=== PATIENT | male | born 1980 | race African-American/Black ===

== ENCOUNTER 2022-07-10 19:32 | Emergency (ER) | payer OTHER, SELFPAY ==
[2022-07-10 19:34] VITALS: BP 143/81; PULSE 84; RESP 16; TEMP 36.2; O2SAT 100
[2022-07-10 19:57] LABS: Basophils Percent Auto 0.2 % (0.2-1.2); Eosinophils Absolute Auto 0.3 K/mm3 (0-0.3); Eosinophils Percent Auto 3.3 % (0-4.4); Hematocrit 45.9 % (42.0-52.0); Hemoglobin 14.5 g/dL (14.0-18.0); Immature Granulocyte Absolute 0.02 K/mm3 (0.00-0.031); Immature Granulocyte Percent A 0.2 % (0-0.5); Lymphocytes Absolute Auto 1.81 K/mm3 (0.9-3.2); Lymphocytes Percent Auto 22.2 % (18.3-44.2); Mean Corpuscular HGB Conc 31.6 g/dl (32-36); Mean Corpuscular Hemoglobin 24.7 pg (26-34); Mean Corpuscular Volume 78.1 fl (80-100); Mean Platelet Volume 9.3 fl (7.4-10.4); Monocytes Absolute Auto 0.7 K/mm3 (0.1-0.6); Monocytes Percent Auto 8.7 % (2.6-8.5); Neutrophils Absolute Auto 5.3 K/mm3 (1.3-6.7); Neutrophils Percent Auto 65.4 % (45.5-73.1); Platelet Count Result 249 k/mm3 (150-375); Red Blood Count 5.88 M/mm3 (4.6-6.20); Red Cell Distribution Width 17.1 % (11.5-14.5); White Blood Count 8.2 K/mm3 (4.5-10.0)
[2022-07-10 19:59] LABS: Appearance Urine Clear (Clear); Bilirubin Urine Negative (Negative); Blood Urine Negative (Negative); Color Urine Yellow (Yellow); Glucose Urine UA Negative (Negative); Ketones Urine Negative (Negative); Leukocyte Esterase Ur Negative LEU/UL (Negative); Nitrate Urine Negative (Negative); Protein Urine Negative (Negative); Specific Grav Ur 1.026 (1.001-1.035); Urobilinogen Urine 0.2 mg/dL (<2.0); pH Urine 5.5 (5.0-9.0)
[2022-07-10 20:03] LABS: Add Urine Microscopic? NO
[2022-07-10 20:10] LABS: Alanine Aminotransferase 33 U/L (6-50); Albumin Level 4.9 g/dL (3.5-5.1); Alkaline Phosphatase 71 U/L (38-126); Anion Gap 8 mmol/L (8-16); Aspartate Amino Transferase 25 U/L (17-59); Bilirubin,Total 0.7 mg/dL (0.2-1.3); Blood Urea Nitrogen 12 mg/dL (9-20); Carbon Dioxide 29 mmol/L (22-30); Chloride 103 mmol/L (98-107); Estimated CRCL calculation 92 ml/min; Estimated Glomerular Filt Rate > 60; Glucose 100 mg/dL (65-110); Lipase 87 U/L (23-300); Sodium 140 mmol/L (137-145)
--- NOTE | 2022-07-10 21:11 | ED.ABDPAIN ---
HPI - Abdominal Pain General Chief Complaint: Abdominal Pain Stated Complaint: fatigue, diarrhea Time Seen by Provider: 07/10/22 21:01 History of Present Illness HPI narrative: Patient is a 42-year-old male here after he had an episode of diarrhea this morning. Patient expresses concern because his bowel movements are usually solid and he was concerned that his bowel movement today was liquid. He denies blood in his stool. He had [id number] yesterday that he states looked suspicious , and the person that handed him his food had dirty fingers . Woke up today with nausea and fatigue. No abdominal pain, fevers, vomiting. Related Data Allergies Allergy/AdvReac Type Severity Reaction Status Date / Time acetaminophen [From NyQuil] Allergy Back Pain Verified 07/10/22 21:07 dextromethorphan Allergy Back Pain Verified 07/10/22 21:07 [From NyQuil] doxylamine [From NyQuil] Allergy Back Pain Verified 07/10/22 21:07 pseudoephedrine [From NyQuil] Allergy Back Pain Verified 07/10/22 21:07 Review of Systems Review of Systems: Gen.: Denies fevers or chills Eyes: Denies eye pain or visual change ENT: Denies congestion Respiratory: Denies shortness of breath or cough CV: Denies chest pain or palpitations GI: reports diarrhea and nausea. Denies abdominal pain emesis denies burning, urgency, frequency or hematuria Musculoskeletal: Denies back pain or muscle pain Neuro: Denies numbness, tingling, weakness or focal weakness Skin: Denies rash Except as documented, all other systems reviewed and negative Exam Narrative: APPEARANCE: Well appearing, no pain in distress, well-nourished. Head: Normocephalic and atraumatic. EYES: PERRLA/EOMI, conjunctivae clear NOSE: No nasal drainage EARS: External ear normal in appearance THROAT: Oropharynx is clear. Mucous membranes are moist. NECK: Supple. No adenopathy, no masses. RESPIRATORY: Airway patent, respirations nonlabored. Clear to auscultation bilaterally, no rales, rhonchi, wheezing. CARDIOVASCULAR: Regular rate and rhythm without murmurs, rubs, or gallops. ABDOMINAL: Normoactive bowel sounds. Soft, nontender, nondistended. No rebound tenderness or guarding. MUSCULOSKELETAL: Extremities are warm and well-perfused. Moves all extremities well. No edema. NEURO: Normal speech. No focal neurologic deficits. SKIN: Skin is warm and dry. No rashes. PSYCHIATRIC: Normal affect/mood. Course Vital Signs Vital signs: Vital Signs Temperature 97.2 F L 07/10/22 19:34 Pulse Rate 84 07/10/22 19:34 Respiratory Rate 16 07/10/22 19:34 Blood Pressure 143/81 H 07/10/22 19:34 Pulse Oximetry 100 07/10/22 19:34 Oxygen Delivery Room Air 07/10/22 19:34 Temperature 97.2 F L 07/10/22 19:34 Pulse Rate 84 07/10/22 19:34 Respiratory Rate 16 07/10/22 19:34 Blood Pressure 143/81 H 07/10/22 19:34 Pulse Oximetry 100 07/10/22 19:34 Oxygen Delivery Room Air 07/10/22 19:34 MDM - Abdominal Pain MDM Narrative Medical decision making narrative: 42-year-old male here for evaluation after 1 episode of diarrhea this morning after eating suspicious [id number] yesterday. He is nontoxic in appearance and has normal vital signs. He has no abdominal tenderness on exam. His basic labs are unremarkable. Likely viral gastroenteritis. Patient is tolerating p.o., no indication for IV fluids or abdominal pelvic imaging at this time. He will be discharged home and encouraged to follow a bland diet. Return precautions were discussed and he voiced understanding. Lab Data 07/10/22 19:50 07/10/22 19:50 Labs: Lab Results 07/10/22 07/10/22 07/10/22 Range/Units 19:50 19:50 19:50 WBC 8.2 (4.5-10.0) K/mm3 RBC 5.88 (4.6-6.20) M/mm3 Hgb 14.5 (14.0-18.0) g/dL Hct 45.9 (42.0-52.0) % MCV 78.1 L (80-100) fl MCH 24.7 L (26-34) pg MCHC 31.6 L (32-36) g/dl RDW 17.1 H (11.5-14.5) % Plt Count 249 (150-375) k/m
== END 2022-07-10 22:07 | disposition home or self-care (01) ==
LOC: ANHED 21:34
PROVIDERS: Emergency Medicine; Emergency Provider Physician Assistant; PCP Family Medicine
DX: K52.9 Noninfective gastroenteritis and colitis, unspecified (principal)
CPT/HCPCS: 36415; 80053; 81003; 83690; 85025; 99283